=== PATIENT | male | born 1960 | race Caucasian/White ===

== ENCOUNTER 2022-01-24 10:20 | Outpatient (CLI) | payer OTHER ==
--- NOTE | 2022-01-24 11:13 | XRay Report ---
LUMBAR SPINE 3 VIEWS INDICATION / CLINICAL INFORMATION: BACK PAIN. COMPARISON: None available. FINDINGS: VERTEBRAE: No acute fracture. No significant malalignment. DISC SPACES / FACET JOINTS:Mild discogenic degenerative changes, most pronounced L4-L5. Mild lower thelma mbar spine facet arthropathy. PARASPINAL SOFT TISSUES:Aortic calcifications. ADDITIONAL FINDINGS: None. IMPRESSION: 1. No acute findings. Signer Name: Ellis Santillan MD Signed: 01/24/2022 11:08 AM Workstation Name: [email or web address]
== END 2022-01-24 10:21 | disposition home or self-care (01) ==
LOC: XRAY 10:20
PROVIDERS: ATTEND Internal Medicine
DX: Z02.71 Encounter for disability determination (principal); M47.816 Spondylosis without myelopathy or radiculopathy, lumbar region
CPT/HCPCS: 72100